=== PATIENT | female | born 1955 | race African-American/Black ===

== ENCOUNTER 2017-10-09 15:33 | Inpatient (IN) | payer MEDICAID ==
[2017-10-09] VITALS (9 sets, daily range): BP systolic 167–221; BP diastolic 95–118
[~2017-10-09] VITALS: Ht 198.1 cm; Wt 119.5 kg
[~2017-10-09 15:33] MED LIST: AMLO10TA4 PO; AMLO10TA80 PO; ATENOLOL; BENAZEPRIL; CLON0.1T PO; HCTZ; HYDR100T26 PO; LISI-653 PO; LOSA100T3 PO; METO50TA95 PO
[2017-10-09] MEDS ORDERED: HYDRALAZINE 20MG/ML VIAL IV ONE ×2 (16:15→17:30)
[2017-10-09 16:38] LABS: CHLORIDE 107 mEq/L (98-107)
[2017-10-09 16:40] LABS: HEMATOCRIT. 30.3 % (36.0-48.0); MEAN CORPUSCULAR HEMOGLOBIN 29.1 pg (28.0-32.0); MEAN CORPUSCULAR VOLUME 88.1 fL (81.0-99.0); MEAN PLATELET VOLUME 8.1 fl (7.4-10.4); MONOCYTES % 7.7 % (2.0-8.0); NEUTROPHILS % 64.3 % (40.0-76.0); PLATELET 255 x1000/uL (130-400); RED BLOOD CELL COUNT 3.44 mill/uL (4.2-5.4); RED CELL DISTRIBUTION WIDTH 15.4 % (11.6-14.6)
[2017-10-09 17:26] LABS: INR 1.1; PARTIAL THROMBOPLASTIN TIME 28.9 sec (23.4-31.0); PROTHROMBIN TIME 11.2 sec (9.4-11.6)
[2017-10-09] MEDS ORDERED: ASPIRIN 325MG EC TABLET PO ONE (18:15)
[2017-10-09] MEDS ORDERED: NITROGLYCERIN 50MG PREMIX 250 ML IV ONE (18:15)
[2017-10-09] MEDS ORDERED: HYDRALAZINE 20MG/ML VIAL IV SCH (22:00)
[2017-10-09] MEDS ORDERED: MORPHINE SULFATE 4 MG/ML CPJ (NOT FOR IM USE) IV PRN (22:00)
[2017-10-09] MEDS ORDERED: ONDANSETRON HCL 4MG/2ML VIAL IV PRN (22:00)
[2017-10-09] MEDS ORDERED: NITROPRUSSIDE 100 MG in DEXT 5% WATER 250 ML IV PRN (22:00)
[2017-10-09] MEDS ORDERED: NICARDIPINE 50 MG in SODIUM CHLORIDE 0.9% 230 ML IV PRN (22:30)
[2017-10-09] MEDS ORDERED: NICARDIPINE 40MG/200ML PREMIX 200 ML IV PRN (22:45)
[2017-10-09] MEDS: CLONIDINE 0.2MG TABLET PO SCH (22:56)
[2017-10-09] MEDS: HYDRALAZINE HCL 100MG TABLET PO SCH (22:57)
[2017-10-10] VITALS (42 sets, daily range): BP systolic 113–153; BP diastolic 60–89
[2017-10-10] MEDS: HYDRALAZINE HCL 100MG TABLET PO SCH ×3 (05:47→21:17)
[2017-10-10] MEDS: CLONIDINE 0.2MG TABLET PO SCH ×3 (05:47→21:17)
[2017-10-10] MEDS: ALLOPURINOL 100 MG TABLET PO SCH (08:33)
[2017-10-10] MEDS: AMLODIPINE 10MG TABLET PO SCH (08:34)
[2017-10-10 10:59] LABS: CREATINE KINASE 61 IU/L (26-192)
[2017-10-10] MEDS ORDERED: ACETAMINOPHEN 650MG/20.3ML UDC PO PRN (13:45)
[2017-10-10] MEDS ORDERED: ACETAMINOPHEN 325MG TABLET PO PRN (14:45)
[2017-10-10 15:36] LABS: CLARITY URINE CLOUDY (CLEAR); COLOR URINE YELLOW (YELLOW); KETONES URINE NEGATIVE (NEGATIVE); LEUKOCYTE ESTERASE URINE TRACE (NEGATIVE); NITRITE URINE NEGATIVE (NEGATIVE); OCCULT BLOOD URINE NEGATIVE (NEGATIVE); PROTEIN URINE 2+ (NEGATIVE); SPECIFIC GRAVITY URINE 1.013 (1.005-1.030); UROBILINOGEN URINE 0.2 E.U./dL (0.2-1.0)
[2017-10-11] VITALS: BP 143/74
[2017-10-11 04:00] VITALS: BP 115/60
[2017-10-11] MEDS: HYDRALAZINE HCL 100MG TABLET PO SCH ×3 (06:48→22:04)
[2017-10-11] MEDS: CLONIDINE 0.2MG TABLET PO SCH ×3 (06:48→22:05)
[2017-10-11 06:56] LABS: BASOPHILS % 0.4 % (0.0-2.0); EOSINOPHILS % 2.4 % (0.0-5.0); HEMATOCRIT. 27.4 % (36.0-48.0); HEMOGLOBIN. 9.3 g/dL (12.0-16.0); LYMPHOCYTES % 16.7 % (20.0-50.0); MEAN CORPUSCULAR HEMOGLOBIN 29.8 pg (28.0-32.0); MEAN CORPUSCULAR VOLUME 87.9 fL (81.0-99.0); MEAN PLATELET VOLUME 8.5 fl (7.4-10.4); MONOCYTES % 10.3 % (2.0-8.0); NEUTROPHILS % 70.2 % (40.0-76.0); PLATELET 228 x1000/uL (130-400); RED BLOOD CELL COUNT 3.11 mill/uL (4.2-5.4); RED CELL DISTRIBUTION WIDTH 15.7 % (11.6-14.6)
[2017-10-11 08:00] VITALS: BP 128/65
[2017-10-11] MEDS: ALLOPURINOL 100 MG TABLET PO SCH (08:43)
[2017-10-11] MEDS: AMLODIPINE 10MG TABLET PO SCH (08:43)
[2017-10-11 09:08] LABS: ANTI-NUCLEAR ANTIBODIES DIRECT Negative (Negative)
[2017-10-11 12:00] VITALS: BP 130/70
[2017-10-11 16:00] VITALS: BP 140/70
[2017-10-11 20:00] VITALS: BP 148/75
[2017-10-12] VITALS: BP 111/61
[2017-10-12 04:00] VITALS: BP 144/66
[2017-10-12] MEDS: CLONIDINE 0.2MG TABLET PO SCH (05:08)
[2017-10-12 06:44] LABS: BASOPHILS % 0.7 % (0.0-2.0); EOSINOPHILS % 2.2 % (0.0-5.0); HEMATOCRIT. 27.2 % (36.0-48.0); HEMOGLOBIN. 9.1 g/dL (12.0-16.0); LYMPHOCYTES % 19.4 % (20.0-50.0); MEAN CORPUSCULAR HEMOGLOBIN 29.5 pg (28.0-32.0); MEAN CORPUSCULAR VOLUME 87.9 fL (81.0-99.0); MEAN PLATELET VOLUME 8.8 fl (7.4-10.4); MONOCYTES % 11.5 % (2.0-8.0); NEUTROPHILS % 66.2 % (40.0-76.0); PLATELET 226 x1000/uL (130-400); RED BLOOD CELL COUNT 3.09 mill/uL (4.2-5.4); RED CELL DISTRIBUTION WIDTH 15.6 % (11.6-14.6)
[2017-10-12] MEDS: HYDRALAZINE HCL 100MG TABLET PO SCH (07:09)
[2017-10-12 08:00] VITALS: BP 130/60
[2017-10-12] MEDS: AMLODIPINE 10MG TABLET PO SCH (08:54)
[2017-10-12] MEDS: ALLOPURINOL 100 MG TABLET PO SCH (08:54)
[2017-10-12 11:24] VITALS: BP 130/68
[2017-10-14 05:25] LABS: COMPLEMENT C3 130 mg/dL (82-167)
== END 2017-10-12 13:45 | disposition home or self-care (01) | DRG 199 ==
LOC: ER 16:01 → MICUSO 18:13 → ENRESERV 18:35 → 5WST 10-10 17:15
PROVIDERS: ADMIT Hospitalist; ATTEND Hospitalist
DX: I16.1 Hypertensive emergency (principal); N17.9 Acute kidney failure, unspecified; E46 Unspecified protein-calorie malnutrition; D63.1 Anemia in chronic kidney disease; F17.200 Nicotine dependence, unspecified, uncomplicated; I12.9 Hypertensive chronic kidney disease with stage 1 through stage 4 chronic kidney disease, or unspecified chronic kidney disease; N18.9 Chronic kidney disease, unspecified; Z90.710 Acquired absence of both cervix and uterus; Z91.14 Patient's other noncompliance with medication regimen; Z79.899 Other long term (current) drug therapy; Z68.30 Body mass index [BMI] 30.0-30.9, adult
CPT/HCPCS: 36415; 71045; 76770; 80048; 80053; 81003; 82550; 84484; 85025; 85610; 85730; 86038; 86160; 93005; 96365; 96375; 96376; 99291; J0360; J2270; J2405; J3490; J7040

== ENCOUNTER 2018-06-14 12:03 | Inpatient (IN) | payer MEDICAID ==
[~2018-06-14] VITALS: Ht 167.6 cm; Wt 105.7 kg
[~2018-06-14 12:03] MED LIST changes: -AMLO10TA4 PO; -AMLO10TA80 PO; -CLON0.1T PO; -HYDR100T26 PO
[2018-06-14] MEDS ORDERED: HYDROCODONE/ACETAMINOPHEN 5/325MG TABLET PO STA (15:07)
[2018-06-14 15:37] LABS: CLARITY URINE CLEAR (CLEAR); COLOR URINE YELLOW (YELLOW); KETONES URINE NEGATIVE (NEGATIVE); LEUKOCYTE ESTERASE URINE NEGATIVE (NEGATIVE); NITRITE URINE NEGATIVE (NEGATIVE); OCCULT BLOOD URINE NEGATIVE (NEGATIVE); PROTEIN URINE 3+ (NEGATIVE); SPECIFIC GRAVITY URINE 1.012 (1.005-1.030); UROBILINOGEN URINE 0.2 E.U./dL (0.2-1.0)
[2018-06-14] MEDS ORDERED: CLONIDINE 0.2MG TABLET PO NR (18:00)
[2018-06-14] MEDS ORDERED: METOPROLOL TARTRATE 50MG TABLET PO NR (18:00)
[2018-06-14] MEDS ORDERED: AMLODIPINE 10MG TABLET PO NR (18:00)
[2018-06-14 18:04] LABS: BASOPHILS % 0.5 % (0.0-2.0); EOSINOPHILS % 2.7 % (0.0-5.0); HEMATOCRIT. 33.1 % (36.0-48.0); HEMOGLOBIN. 10.7 g/dL (12.0-16.0); LYMPHOCYTES % 21.4 % (20.0-50.0); MEAN CORPUSCULAR HEMOGLOBIN 29.3 pg (28.0-32.0); MEAN CORPUSCULAR VOLUME 90.7 fL (81.0-99.0); MEAN PLATELET VOLUME 8.4 fl (7.4-10.4); MONOCYTES % 5.8 % (2.0-8.0); NEUTROPHILS % 69.6 % (40.0-76.0); PLATELET 319 x1000/uL (130-400); RED BLOOD CELL COUNT 3.64 mill/uL (4.2-5.4); RED CELL DISTRIBUTION WIDTH 16.3 % (11.6-14.6)
[2018-06-14 18:10] LABS: CHLORIDE 109 mEq/L (98-107)
[2018-06-14 18:11] LABS: INR 1.1; PROTHROMBIN TIME 10.7 sec (9.1-11.1)
[2018-06-14] MEDS ORDERED: ASPIRIN 81MG TABLET PO ONE (18:30)
[2018-06-14] MEDS ORDERED: IPRATROPIUM/ALBUTEROL 0.5-3(2.5)MG/3ML NEB INH PRN (19:15)
[2018-06-14] MEDS ORDERED: DOCUSATE SODIUM 100MG CAPSULE PO PRN (19:15)
[2018-06-14] MEDS ORDERED: ONDANSETRON HCL 4MG/2ML INJ IV PRN (19:15)
[2018-06-14] MEDS ORDERED: LORAZEPAM 0.5MG TABLET PO PRN (19:15)
[2018-06-14] MEDS ORDERED: LABETALOL 5MG/ML SYR 20 MG/4 ML SYRINGE IV PRN (19:15)
[2018-06-14] MEDS ORDERED: LABETALOL 5MG/ML SYR 20 MG/4 ML SYRINGE IV ONE (19:45)
[2018-06-14 20:12] LABS: CREATINE KINASE MB FRACTION 1.3 ng/mL (0.5-3.6)
[2018-06-14 20:19] LABS: *AMPHETAMINES SCREEN URINE NEGATIVE (NEGATIVE); *BARBITURATES SCREEN URINE NEGATIVE (NEGATIVE); *BENZODIAZEPINES SCREEN URINE NEGATIVE (NEGATIVE); *COCAINE SCREEN URINE NEGATIVE (NEGATIVE); METHADONE URINE SCREEN NEGATIVE (NEGATIVE); OPIATES URINE SCREEN NEGATIVE (NEGATIVE)
[2018-06-14 20:20] LABS: CANNABINOID URINE SCREEN NEGATIVE (NEGATIVE); PHENCYCLIDINE URINE SCREEN NEGATIVE (NEGATIVE)
[2018-06-14] MEDS: HYDROCODONE/ACETAMINOPHEN 5/325MG TABLET PO PRN (23:44)
[2018-06-15] MEDS ORDERED: LABETALOL 5MG/ML SYR 20 MG/4 ML SYRINGE IV PRN (05:15)
[2018-06-15 06:12] LABS: BASOPHILS % 0.7 % (0.0-2.0); EOSINOPHILS % 4.1 % (0.0-5.0); HEMATOCRIT. 31.1 % (36.0-48.0); HEMOGLOBIN. 10.2 g/dL (12.0-16.0); LYMPHOCYTES % 27.1 % (20.0-50.0); MEAN CORPUSCULAR HEMOGLOBIN 29.6 pg (28.0-32.0); MEAN CORPUSCULAR VOLUME 90.2 fL (81.0-99.0); MEAN PLATELET VOLUME 8.3 fl (7.4-10.4); MONOCYTES % 7.5 % (2.0-8.0); NEUTROPHILS % 60.6 % (40.0-76.0); PLATELET 303 x1000/uL (130-400); RED BLOOD CELL COUNT 3.45 mill/uL (4.2-5.4)
[2018-06-15] MEDS ORDERED: NIFEDIPINE 10MG CAPSULE PO SCH ×2 (09:00→12:00)
[2018-06-15] MEDS: CLONIDINE 0.1MG TABLET PO PRN ×2 (10:10→15:36)
[2018-06-15] MEDS: HYDROCODONE/ACETAMINOPHEN 5/325MG TABLET PO PRN ×2 (11:33→15:37)
[2018-06-15 12:34] LABS: FOLIC ACID (FOLATE) SERUM 13.1 ng/mL (>5.38)
[2018-06-15 14:18] LABS: TOTAL IRON BINDING CAPACITY 200 ug/dL (250-450)
[2018-06-15] MEDS ORDERED: CEFTRIAXONE 1 G PREMIX 50 ML IV SCH (19:15)
[2018-06-15 20:00] VITALS: BP_SYST 115; BP_SYST 155; BP_DIAS 88; BP_DIAS 93
[2018-06-15] MEDS: CEFTRIAXONE 1,000 MG in DEXTROSE 5% WATER 50 ML IV SCH (22:33)
[2018-06-15] MEDS: DILTIAZEM HCL 30MG TABLET PO SCH (22:34)
[2018-06-15] MEDS: NICOTINE 7MG PATCH TD SCH (22:34)
[2018-06-16] VITALS: BP 166/89
[2018-06-16 04:00] VITALS: BP 161/89
[2018-06-16] MEDS: DILTIAZEM HCL 30MG TABLET PO SCH ×3 (04:47→15:02)
[2018-06-16] MEDS: CLONIDINE 0.1MG TABLET PO PRN ×2 (04:47→09:40)
[2018-06-16 07:11] LABS: BASOPHILS % 0.5 % (0.0-2.0); EOSINOPHILS % 4.7 % (0.0-5.0); HEMATOCRIT. 25.8 % (36.0-48.0); HEMOGLOBIN. 8.4 g/dL (12.0-16.0); LYMPHOCYTES % 24.1 % (20.0-50.0); MEAN CORPUSCULAR HEMOGLOBIN 29.3 pg (28.0-32.0); MEAN PLATELET VOLUME 8.3 fl (7.4-10.4); MONOCYTES % 9.4 % (2.0-8.0); NEUTROPHILS % 61.3 % (40.0-76.0); PLATELET 246 x1000/uL (130-400); RED BLOOD CELL COUNT 2.86 mill/uL (4.2-5.4)
[2018-06-16] MEDS: NICOTINE 7MG PATCH TD SCH (09:39)
[2018-06-16] MEDS: HYDROCODONE/ACETAMINOPHEN 5/325MG TABLET PO PRN ×2 (09:41→18:33)
[2018-06-16 12:00] VITALS: BP 171/93
[2018-06-16 12:31] LABS: CLARITY URINE CLOUDY (CLEAR); COLOR URINE YELLOW (YELLOW); KETONES URINE NEGATIVE (NEGATIVE); LEUKOCYTE ESTERASE URINE 2+ (NEGATIVE); NITRITE URINE NEGATIVE (NEGATIVE); OCCULT BLOOD URINE TRACE (NEGATIVE); PH URINE 6.5 (4.5-8.0); PROTEIN URINE 2+ (NEGATIVE); SPECIFIC GRAVITY URINE 1.013 (1.005-1.030); UROBILINOGEN URINE 0.2 E.U./dL (0.2-1.0)
[2018-06-16 13:29] LABS: HEMATOCRIT 26.8 % (36.0-48.0); HEMOGLOBIN 8.6 g/dL (12.0-16.0)
[2018-06-16] MEDS: CLONIDINE 0.1MG TABLET PO SCH ×2 (15:02→23:09)
[2018-06-16 16:00] VITALS: BP 150/90
[2018-06-16] MEDS: FUROSEMIDE 40MG TABLET PO SCH (18:24)
[2018-06-16 20:00] VITALS: BP 151/86
[2018-06-16] MEDS: CEFTRIAXONE 1,000 MG in DEXTROSE 5% WATER 50 ML IV SCH (20:39)
[2018-06-16] MEDS: DILTIAZEM HCL 90MG TABLET PO SCH (20:39)
[2018-06-17] VITALS: BP 142/81
[2018-06-17] MEDS: DILTIAZEM HCL 90MG TABLET PO SCH ×2 (03:57→08:43)
[2018-06-17 04:00] VITALS: BP 143/86
[2018-06-17] MEDS: CLONIDINE 0.1MG TABLET PO SCH ×3 (06:39→21:10)
[2018-06-17 08:00] VITALS: BP 154/85
[2018-06-17 08:21] LABS: BASOPHILS % 0.7 % (0.0-2.0); EOSINOPHILS % 4.1 % (0.0-5.0); HEMATOCRIT. 27.3 % (36.0-48.0); LYMPHOCYTES % 25.5 % (20.0-50.0); MEAN CORPUSCULAR HEMOGLOBIN 29.7 pg (28.0-32.0); MEAN CORPUSCULAR VOLUME 90.2 fL (81.0-99.0); MEAN PLATELET VOLUME 8.4 fl (7.4-10.4); MONOCYTES % 9.5 % (2.0-8.0); NEUTROPHILS % 60.2 % (40.0-76.0); PLATELET 262 x1000/uL (130-400); RED BLOOD CELL COUNT 3.02 mill/uL (4.2-5.4); RED CELL DISTRIBUTION WIDTH 15.8 % (11.6-14.6)
[2018-06-17] MEDS: FUROSEMIDE 40MG TABLET PO SCH (08:43)
[2018-06-17] MEDS: NICOTINE 7MG PATCH TD SCH (08:44)
[2018-06-17] MEDS ORDERED: DILTIAZEM HCL 180MG CAPSULE CD 24HR PO SCH (09:30)
[2018-06-17] MEDS: MAGNESIUM CHLORIDE 64MG TABLET SR PO SCH (15:56)
[2018-06-17] MEDS: DILTIAZEM HCL 120MG CAPSULE CD 24HR PO SCH ×2 (15:56→21:10)
[2018-06-17] MEDS: HYDROCODONE/ACETAMINOPHEN 5/325MG TABLET PO PRN (19:55)
[2018-06-17 20:33] VITALS: BP 174/86
[2018-06-17] MEDS: CEFTRIAXONE 1,000 MG in DEXTROSE 5% WATER 50 ML IV SCH (21:09)
[2018-06-18] VITALS (7 sets, daily range): BP systolic 147–178; BP diastolic 72–88
[2018-06-18] MEDS: HYDROCODONE/ACETAMINOPHEN 5/325MG TABLET PO PRN (05:17)
[2018-06-18] MEDS: CLONIDINE 0.1MG TABLET PO SCH (05:17)
[2018-06-18 06:57] LABS: MEAN CORPUSCULAR HEMOGLOBIN 29.6 pg (28.0-32.0); MEAN CORPUSCULAR VOLUME 88.6 fL (81.0-99.0); MEAN PLATELET VOLUME 8.7 fl (7.4-10.4); PLATELET 282 x1000/uL (130-400); RED BLOOD CELL COUNT 3.05 mill/uL (4.2-5.4); RED CELL DISTRIBUTION WIDTH 15.5 % (11.6-14.6)
[2018-06-18] MEDS: NICOTINE 7MG PATCH TD SCH (09:00)
[2018-06-18] MEDS: FUROSEMIDE 40MG TABLET PO SCH (09:02)
[2018-06-18] MEDS: DILTIAZEM HCL 120MG CAPSULE CD 24HR PO SCH (09:03)
[2018-06-18] MEDS: MAGNESIUM CHLORIDE 64MG TABLET SR PO SCH (09:04)
[2018-06-18] MEDS: GUAIFENESIN-DM 200MG-20MG/10ML UDC PO PRN ×2 (12:24→17:41)
[2018-06-18 13:56] LABS: PLATELET ESTIMATE NORMAL
[2018-06-18] MEDS ORDERED: CLONIDINE 0.2MG TABLET PO SCH (14:00)
[2018-06-18] MEDS: CLONIDINE 0.1MG TABLET PO PRN (16:45)
[2018-06-18] MEDS ORDERED: HYDRALAZINE 20MG/ML VIAL IV NR (18:30)
[2018-06-18] MEDS ORDERED: GUAIFENESIN 600MG ER TABLET PO SCH (21:00)
== END 2018-06-18 20:30 | disposition home or self-care (01) | DRG 199 ==
LOC: ER 13:59 → EDBEDREQSVC 06-15 12:31 → 8WST 06-15 14:00 → ENRESERV 06-15 15:36
PROVIDERS: ADMIT Internal Medicine; ATTEND Internal Medicine
DX: I16.1 Hypertensive emergency (principal); N17.9 Acute kidney failure, unspecified; I45.81 Long QT syndrome; N12 Tubulo-interstitial nephritis, not specified as acute or chronic; N18.5 Chronic kidney disease, stage 5; Z85.41 Personal history of malignant neoplasm of cervix uteri; Z90.711 Acquired absence of uterus with remaining cervical stump; D63.8 Anemia in other chronic diseases classified elsewhere; F17.200 Nicotine dependence, unspecified, uncomplicated; J44.9 Chronic obstructive pulmonary disease, unspecified; R10.9 Unspecified abdominal pain; F12.90 Cannabis use, unspecified, uncomplicated; Z90.710 Acquired absence of both cervix and uterus; E66.9 Obesity, unspecified; I13.0 Hypertensive heart and chronic kidney disease with heart failure and stage 1 through stage 4 chronic kidney disease, or unspecified chronic kidney disease; Z68.37 Body mass index [BMI] 37.0-37.9, adult
CPT/HCPCS: 36415; 71045; 74176; 80048; 80305; 82550; 82553; 82575; 82607; 82728; 82746; 83540; 83550; 83735; 84145; 84484; 85014; 85018; 93005; 93306; 93970; 99285; C1893; G0378; J0360; J0696; J3490; J7050; J7060

== ENCOUNTER 2019-11-14 03:13 | Emergency (ER) | payer MEDICAID ==
[~2019-11-14] VITALS: Ht 167.6 cm; Wt 113.7 kg
[2019-11-14] MEDS ORDERED: MORPHINE SULFATE 10 MG/ML CPJ IM ONE (04:30)
[2019-11-14] MEDS ORDERED: AMLODIPINE 10MG TABLET PO ONE (05:30)
[2019-11-14 08:23] VITALS: BP 187/97
== END 2019-11-14 08:35 | disposition home or self-care (01) ==
LOC: ER 03:18
DX: S80.02XA Contusion of left knee, initial encounter (principal); S80.01XA Contusion of right knee, initial encounter; W01.0XXA Fall on same level from slipping, tripping and stumbling without subsequent striking against object, initial encounter; Y93.89 Activity, other specified; Y92.89 Other specified places as the place of occurrence of the external cause; Y99.8 Other external cause status; I10 Essential (primary) hypertension; Z90.710 Acquired absence of both cervix and uterus; F12.10 Cannabis abuse, uncomplicated; I16.0 Hypertensive urgency; Z79.899 Other long term (current) drug therapy
CPT/HCPCS: 72100; 73562; 96372; 99284; J2270

== ENCOUNTER 2023-06-07 17:35 | Inpatient (IN) | payer MEDICARE, MEDICAID ==
[~2023-06-07] VITALS: Ht 167.6 cm; Wt 94.4 kg
[~2023-06-07 17:35] MED LIST changes: -BENAZEPRIL; +CLON-493 MT; -HCTZ; -LISI-653 PO; -LOSA100T3 PO; +NIFE-32 PO
[2023-06-07] MEDS ORDERED: MORPHINE SULFATE 4 MG/ML CPJ (NOT FOR IM USE) IV STA (18:07)
[2023-06-07] MEDS ORDERED: ONDANSETRON HCL 4MG/2ML INJ IV STA (18:07)
[2023-06-07] MEDS ORDERED: PIPERACILLIN/TAZO 3.375G/50ML 50 ML IV ONE (18:15)
[2023-06-07] MEDS ORDERED: VANCOMYCIN 1G PREMIX 200 ML IV ONE (18:15)
[2023-06-07 20:37] LABS: BASOPHILS % 1.2 % (0.0-2.0); DIFFERENTIAL COMMENT 0; EOSINOPHILS % 2.7 % (0.0-5.0); LYMPHOCYTES % 18.2 % (20.0-50.0); MEAN CORPUSCULAR HEMOGLOBIN 27.4 pg (28.0-32.0); MEAN CORPUSCULAR HGB CONC 31.8 g/dL (31.0-37.0); MEAN CORPUSCULAR VOLUME 86.2 fL (81.0-99.0); MONOCYTES % 9.7 % (2.0-8.0); NEUTROPHILS % 68.2 % (40.0-76.0); PLATELET 434 x1000/uL (130-400); RED BLOOD CELL COUNT 2.34 mill/uL (4.2-5.4); RED CELL DISTRIBUTION WIDTH 21.3 % (11.6-14.6); WHITE BLOOD COUNT 9.2 x1000/uL (4.5-11.0)
[2023-06-07 20:46] LABS: HEMATOCRIT. 20.2 % (36.0-48.0); HEMOGLOBIN. 6.4 g/dL (12.0-16.0)
[2023-06-07 20:49] LABS: ALANINE AMINOTRANSFERASE < 7 IU/L (10-49); ALBUMIN 3.4 g/dL (3.2-4.8); ASPARTATE AMINOTRANSFERASE 13 IU/L (<34); BILIRUBIN TOTAL < 0.2 mg/dL (0.1-1.0); CALCIUM 8.8 mg/dL (8.7-10.4); CARBON DIOXIDE 28 mEq/L (21-32); CHLORIDE 100 mEq/L (98-107); GLUCOSE 92 mg/dL (70-105); POTASSIUM 4.6 mEq/L (3.5-5.1); PROTEIN TOTAL 6.9 g/dL (6.0-8.3); SODIUM 135 mEq/L (136-145); UREA NITROGEN BLOOD 65 mg/dL (9-23)
[2023-06-07 20:50] LABS: CREATININE 5.9 mg/dL (0.6-1.0)
[2023-06-07 20:51] LABS: PARTIAL THROMBOPLASTIN TIME 27.3 sec (23.4-31.0); PROTHROMBIN TIME 11.2 sec (9.6-11.0); TROPONIN I HIGH SENSITIVITY 35 ng/L (3.0-34)
[2023-06-07] MEDS: PIPERACILLIN/TAZO 3.375G/50ML 50 ML IV NR (21:39)
[2023-06-07] MEDS: MORPHINE SULFATE 4 MG/ML CPJ (NOT FOR IM USE) IV NR (21:39)
[2023-06-07] MEDS: ONDANSETRON HCL 4MG/2ML INJ IV NR (21:39)
[2023-06-07] MEDS: ONDANSETRON HCL 4MG/2ML INJ IV STA (22:03)
[2023-06-07] MEDS: MORPHINE SULFATE 4 MG/ML CPJ (NOT FOR IM USE) IV STA (22:03)
[2023-06-07] MEDS: VANCOMYCIN 1G PREMIX 200 ML IV NR (22:03)
[2023-06-08 01:53] VITALS: BP 153/90; PULSE 88; RESP 20; TEMP 97.1
[2023-06-08] MEDS: CLONIDINE 0.1MG TABLET PO SCH (06:39)
[2023-06-08 08:00] VITALS: BP 167/88; PULSE 88; RESP 15; TEMP 97.9
[2023-06-08] MEDS ORDERED: NALOXONE HCL 0.4MG/ML VIAL IV PRN (08:45)
[2023-06-08] MEDS: ASPIRIN 81MG TABLET PO SCH (08:50)
[2023-06-08] MEDS: PIPERACILLIN/TAZO 3.375G/50ML 50 ML IV SCH (08:50)
[2023-06-08] MEDS: METOPROLOL TARTRATE 50MG TABLET PO SCH (08:50)
[2023-06-08] MEDS: HYDROCODONE/ACETAMINOPHEN 10/325MG TABLET PO PRN (08:51)
[2023-06-08] MEDS: GABAPENTIN 300MG CAPSULE PO SCH (08:52)
[2023-06-08] MEDS ORDERED: NIFEDIPINE XL 60MG TAB PO SCH (09:00)
[2023-06-08] MEDS: ONDANSETRON HCL 4MG/2ML INJ IV PRN (10:27)
[2023-06-08] MEDS: VANCOMYCIN 500MG PREMIX 100 ML IV SCH (11:08)
[2023-06-08 12:00] VITALS: BP 172/73; PULSE 59; RESP 15; TEMP 97.6
[2023-06-08 12:45] LABS: HEMATOCRIT. 23.2 % (36.0-48.0); HEMOGLOBIN. 7.5 g/dL (12.0-16.0); MEAN CORPUSCULAR HEMOGLOBIN 28.4 pg (28.0-32.0); MEAN CORPUSCULAR HGB CONC 32.2 g/dL (31.0-37.0); MEAN CORPUSCULAR VOLUME 88.3 fL (81.0-99.0); MEAN PLATELET VOLUME 7.4 fl (7.4-10.4); PLATELET 392 x1000/uL (130-400); RED BLOOD CELL COUNT 2.63 mill/uL (4.2-5.4); RED CELL DISTRIBUTION WIDTH 19.8 % (11.6-14.6); WHITE BLOOD COUNT 9.2 x1000/uL (4.5-11.0)
[2023-06-08 12:57] LABS: DIFFERENTIAL COMMENT 1
[2023-06-08 13:14] LABS: CALCIUM 9.2 mg/dL (8.7-10.4); PHOSPHORUS 7.4 mg/dL (2.5-4.9); POTASSIUM 5.8 mEq/L (3.5-5.1)
[2023-06-08 13:17] LABS: CREATININE 6.4 mg/dL (0.6-1.0)
[2023-06-08 13:40] LABS: PLATELET ESTIMATE NORMAL
[2023-06-08 13:41] LABS: ANISOCYTOSIS 2+
[2023-06-08] MEDS: DEXTROSE 50% WATER 50ML SYRINGE IV NR (14:31)
[2023-06-08] MEDS: CALCIUM CHLORIDE 1,000 MG in DEXT 5% WATER 90 ML IV NR (14:32)
[2023-06-08] MEDS: INSULIN REGULAR (HUMULIN R) 300UNITS/3ML VIAL IV NR (14:54)
[2023-06-08 16:00] VITALS: BP 153/74; PULSE 61; RESP 17; TEMP 97.5
[2023-06-08 20:00] VITALS: BP 115/75; PULSE 81; RESP 17; TEMP 98.1
[2023-06-09] VITALS (15 sets, daily range): BP systolic 102–133; BP diastolic 50–100; PULSE 55–90; RESP 16–20; TEMP 97.2–99
[2023-06-09 06:18] LABS: BASOPHILS % 0.6 % (0.0-2.0); EOSINOPHILS % 3.8 % (0.0-5.0); HEMATOCRIT. 22.2 % (36.0-48.0); HEMOGLOBIN. 7.3 g/dL (12.0-16.0); LYMPHOCYTES % 17.6 % (20.0-50.0); MEAN CORPUSCULAR HEMOGLOBIN 28.3 pg (28.0-32.0); MEAN CORPUSCULAR HGB CONC 32.8 g/dL (31.0-37.0); MEAN CORPUSCULAR VOLUME 86.2 fL (81.0-99.0); MEAN PLATELET VOLUME 7.4 fl (7.4-10.4); MONOCYTES % 9.9 % (2.0-8.0); NEUTROPHILS % 68.1 % (40.0-76.0); PLATELET 425 x1000/uL (130-400); RED BLOOD CELL COUNT 2.57 mill/uL (4.2-5.4); WHITE BLOOD COUNT 9.5 x1000/uL (4.5-11.0)
[2023-06-09 06:31] LABS: CALCIUM 9.2 mg/dL (8.7-10.4); POTASSIUM 5.8 mEq/L (3.5-5.1)
[2023-06-09 06:33] LABS: CREATININE 6.7 mg/dL (0.6-1.0)
[2023-06-09 11:42] LABS: HEPATITIS A AB IGM NEGATIVE (Negative); HEPATITIS B CORE AB IGM NEGATIVE (Negative); HEPATITIS B SURFACE ANTIGEN NEGATIVE (Negative); HEPATITIS C AB NON REACTIVE (Neg) (Negative)
[2023-06-09] MEDS ORDERED: EPOETIN ALFA 4000UNITS/ML VIAL SUBCUT NR (21:00)
[2023-06-09] MEDS: ZOLPIDEM TARTRATE 5MG TABLET PO PRN (21:44)
[2023-06-10] VITALS (18 sets, daily range): BP systolic 101–144; BP diastolic 46–77; PULSE 62–83; RESP 16–20; TEMP 94.5–100.9
[2023-06-10] MEDS: EPOETIN ALFA 4000UNITS/ML VIAL SUBCUT NR (05:33)
[2023-06-10 08:08] LABS: CALCIUM 9.3 mg/dL (8.7-10.4); HEMATOCRIT 22.2 % (36.0-48.0); HEMOGLOBIN 7.1 g/dL (12.0-16.0); MEAN CORPUSCULAR VOLUME 87.5 fL (81.0-99.0); PLATELET 408 x1000/uL (130-400); POTASSIUM 5.3 mEq/L (3.5-5.1); RED BLOOD CELL COUNT 2.54 mill/uL (4.2-5.4); RED CELL DISTRIBUTION WIDTH 20.1 % (11.6-14.6); WHITE BLOOD COUNT 10.3 x1000/uL (4.5-11.0)
[2023-06-10 08:12] LABS: CREATININE 6.2 mg/dL (0.6-1.0)
[2023-06-10] MEDS: SODIUM POLYSTYRENE SULFONATE 15 G/60 ML BOT PO SCH (12:00)
[2023-06-10] MEDS ORDERED: ALBUTEROL (0.083%) 2.5MG/3ML NEB HHN SCH (12:00)
[2023-06-10] MEDS: VANCOMYCIN 500MG PREMIX 100 ML IV NR (17:43)
[2023-06-11] VITALS: BP 102/49; PULSE 77; RESP 20; TEMP 99.1
[2023-06-11 04:00] VITALS: BP 121/51; PULSE 68; RESP 18; TEMP 99.2
[2023-06-11 06:38] LABS: HEMATOCRIT 23.8 % (36.0-48.0); HEMOGLOBIN 7.7 g/dL (12.0-16.0); MEAN CORPUSCULAR HEMOGLOBIN 28.9 pg (28.0-32.0); MEAN CORPUSCULAR HGB CONC 32.6 g/dL (31.0-37.0); MEAN CORPUSCULAR VOLUME 88.7 fL (81.0-99.0); PLATELET 377 x1000/uL (130-400); RED BLOOD CELL COUNT 2.68 mill/uL (4.2-5.4); RED CELL DISTRIBUTION WIDTH 19.9 % (11.6-14.6); WHITE BLOOD COUNT 9.3 x1000/uL (4.5-11.0)
[2023-06-11 07:07] LABS: CALCIUM 9.4 mg/dL (8.7-10.4); POTASSIUM 4.9 mEq/L (3.5-5.1)
[2023-06-11 07:08] LABS: CREATININE 5.3 mg/dL (0.6-1.0)
[2023-06-11 08:00] VITALS: BP 132/55; PULSE 63; RESP 20; TEMP 97.9
[2023-06-11] MEDS ORDERED: MIDAZOLAM HCL 2 MG/2 ML VIAL ONE ×2 (08:56→12:05)
[2023-06-11] MEDS ORDERED: FENTANYL CITRATE/PF 50MCG/ML 2ML VIAL ONE ×3 (08:57→12:04)
[2023-06-11] MEDS ORDERED: HEPARIN 1000 UNITS/ML 10ML ONE ×2 (08:58→10:17)
[2023-06-11] MEDS ORDERED: LIDOCAINE HCL 1% 20ML VIAL (Pyxis) INJ ONE ×2 (08:58→09:50)
[2023-06-11] MEDS ORDERED: IODIXANOL 320MG/ML 100 ML BOTTLE IV ONE ×2 (08:58→09:45)
[2023-06-11 16:00] VITALS: BP 159/63; PULSE 67; RESP 20; TEMP 97.2
[2023-06-11 20:00] VITALS: BP 121/66; PULSE 77; RESP 20; TEMP 97.9
[2023-06-12] VITALS (16 sets, daily range): BP systolic 93–146; BP diastolic 5–75; PULSE 6–116; RESP 16–20; TEMP 97–98.2
[2023-06-12 06:29] LABS: BASOPHILS % 0.5 % (0.0-2.0); EOSINOPHILS % 2.9 % (0.0-5.0); HEMATOCRIT. 22.8 % (36.0-48.0); HEMOGLOBIN. 7.5 g/dL (12.0-16.0); LYMPHOCYTES % 10.9 % (20.0-50.0); MEAN CORPUSCULAR HEMOGLOBIN 28.9 pg (28.0-32.0); MEAN CORPUSCULAR HGB CONC 32.8 g/dL (31.0-37.0); MEAN PLATELET VOLUME 7.6 fl (7.4-10.4); MONOCYTES % 10.8 % (2.0-8.0); NEUTROPHILS % 74.9 % (40.0-76.0); PLATELET 355 x1000/uL (130-400); RED CELL DISTRIBUTION WIDTH 20.2 % (11.6-14.6); WHITE BLOOD COUNT 10.1 x1000/uL (4.5-11.0)
[2023-06-12 06:47] LABS: POTASSIUM 5.3 mEq/L (3.5-5.1)
[2023-06-12 06:52] LABS: CREATININE 6.2 mg/dL (0.6-1.0)
[2023-06-12] MEDS ORDERED: ALBUTEROL (0.083%) 2.5MG/3ML NEB HHN NR (12:00)
[2023-06-12] MEDS: METOPROLOL TARTRATE 50MG TABLET PO NR (13:15)
[2023-06-12] MEDS: SODIUM POLYSTYRENE SULFONATE 15 G/60 ML BOT PO NR (13:16)
[2023-06-12] MEDS: VANCOMYCIN 500MG PREMIX 100 ML IV NR (18:19)
[2023-06-12] MEDS ORDERED: HYDR-4001 MT (18:56)
[2023-06-12] MEDS: METOPROLOL TARTRATE 50MG TABLET PO SCH (22:05)
[2023-06-13 04:00] VITALS: BP 120/56; PULSE 81; RESP 19; TEMP 97.7
[2023-06-13] MEDS: METOPROLOL TARTRATE 50MG TABLET PO NR (05:58)
[2023-06-13 08:00] VITALS: BP 140/60; PULSE 71; RESP 18; TEMP 98.1
[2023-06-13] MEDS: NITROGLYCERIN SPRAY/4.9GM CAN TL NR (08:50)
[2023-06-13] MEDS ORDERED: IOHEXOL-350 100 ML BOTTLE ONE (09:14)
[2023-06-13 09:54] LABS: CALCIUM 9.1 mg/dL (8.7-10.4); CARBON DIOXIDE 23 mEq/L (21-32); CHLORIDE 102 mEq/L (98-107); GLUCOSE 67 mg/dL (70-105); PHOSPHORUS 6.8 mg/dL (2.5-4.9); POTASSIUM 4.4 mEq/L (3.5-5.1); SODIUM 137 mEq/L (136-145); UREA NITROGEN BLOOD 50 mg/dL (9-23)
[2023-06-13 09:56] LABS: CREATININE 5.5 mg/dL (0.6-1.0)
[2023-06-13] MEDS ORDERED: DIPHENHYDRAMINE 50MG/ML VIAL ONE (10:53)
[2023-06-13] MEDS ORDERED: HEPARIN 1000 UNITS/ML 10ML ONE (10:53)
[2023-06-13] MEDS ORDERED: LIDOCAINE HCL/PF 1% 10 MG/ML 5ML VIAL ONE (10:53)
[2023-06-13] MEDS ORDERED: VERAPAMIL HCL 2.5 MG/1 ML 2ML VIAL IV ONE (10:53)
[2023-06-13] MEDS ORDERED: IODIXANOL 320MG/ML 100 ML BOTTLE IV ONE ×2 (10:54→11:54)
[2023-06-13] MEDS ORDERED: CALCIUM ACETATE 667MG CAPSULE PO SCH (11:00)
[2023-06-13] MEDS ORDERED: FENTANYL CITRATE/PF 50MCG/ML 2ML VIAL ONE ×2 (11:17→11:40)
[2023-06-13] MEDS ORDERED: MIDAZOLAM HCL 2 MG/2 ML VIAL ONE ×2 (11:18→11:41)
[2023-06-13] MEDS ORDERED: ATROPINE SULFATE 1MG/10ML SYR ONE (11:32)
[2023-06-13 12:00] VITALS: BP 136/67; PULSE 64; RESP 18; TEMP 98
[2023-06-13] MEDS ORDERED: ATROPINE SULFATE 1MG/10ML SYR IV PRN (13:15)
[2023-06-13] MEDS ORDERED: ASPI-1406 MT (13:46)
[2023-06-13] MEDS ORDERED: LIP40 MT (13:46)
[2023-06-13 16:15] VITALS: BP 140/60; PULSE 62; RESP 18; TEMP 97
[2023-06-13] MEDS: CALCIUM ACETATE 667MG CAPSULE PO SCH (17:35)
[2023-06-13] MEDS: HYDROCODONE/ACETAMINOPHEN 10/325MG TABLET PO PRN (17:36)
[2023-06-13 20:00] VITALS: BP 129/59; PULSE 72; RESP 18; TEMP 100
[2023-06-13] MEDS: ACETAMINOPHEN 325MG TABLET PO PRN (20:30)
[2023-06-13] MEDS: EPOETIN ALFA 4000UNITS/ML VIAL SUBCUT NR (21:52)
[2023-06-14] VITALS (13 sets, daily range): BP systolic 108–140; BP diastolic 47–66; PULSE 60–84; RESP 16–20; TEMP 97.5–100.8; O2SAT 97
[2023-06-14 06:44] LABS: CARBON DIOXIDE 22 mEq/L (21-32); CHLORIDE 98 mEq/L (98-107); GLUCOSE 63 mg/dL (70-105); POTASSIUM 4.6 mEq/L (3.5-5.1); SODIUM 132 mEq/L (136-145); UREA NITROGEN BLOOD 53 mg/dL (9-23)
[2023-06-14 06:45] LABS: BASOPHILS % 0.6 % (0.0-2.0); EOSINOPHILS % 4.8 % (0.0-5.0); HEMATOCRIT. 23.1 % (36.0-48.0); HEMOGLOBIN. 7.5 g/dL (12.0-16.0); LYMPHOCYTES % 16.4 % (20.0-50.0); MEAN CORPUSCULAR HEMOGLOBIN 28.6 pg (28.0-32.0); MEAN CORPUSCULAR HGB CONC 32.5 g/dL (31.0-37.0); MEAN CORPUSCULAR VOLUME 87.9 fL (81.0-99.0); MEAN PLATELET VOLUME 7.8 fl (7.4-10.4); MONOCYTES % 12.1 % (2.0-8.0); NEUTROPHILS % 66.1 % (40.0-76.0); PLATELET 331 x1000/uL (130-400); RED BLOOD CELL COUNT 2.62 mill/uL (4.2-5.4); RED CELL DISTRIBUTION WIDTH 19.7 % (11.6-14.6); WHITE BLOOD COUNT 6.7 x1000/uL (4.5-11.0)
[2023-06-14 06:48] LABS: CREATININE 6.4 mg/dL (0.6-1.0)
[2023-06-14 06:49] LABS: PHOSPHORUS 8.7 mg/dL (2.5-4.9)
[2023-06-18] MEDS ORDERED: TIZA-204 PO (14:32)
[2023-06-18] MEDS ORDERED: ACET-2708 PO (14:32)
[2023-06-18] MEDS ORDERED: SEVE800T8 PO (14:32)
[2023-06-18] MEDS ORDERED: CHOL200059 PO (14:32)
[2023-06-18] MEDS ORDERED: LISI10TA26 PO (14:32)
[2023-06-18] MEDS ORDERED: APIX2.5T PO (14:32)
[2023-06-18] MEDS ORDERED: GABA800T97 PO (14:32)
[2023-06-18] MEDS ORDERED: FOLI0.4T6 PO (14:32)
== END 2023-06-14 12:30 | disposition home or self-care (01) | DRG 270 ==
LOC: ER 17:35 → 7WST 21:42 → EDBEDREQTM 21:47 → EDBEDREQ 21:47
PROVIDERS: ADMIT Internal Medicine; ATTEND Internal Medicine
PROC: 30233N1 Transfusion of Nonautologous Red Blood Cells into Peripheral Vein, Percutaneous Approach (ICD-10-PCS; principal; 2023-06-07)
PROC: 5A1D70Z Performance of Urinary Filtration, Intermittent, Less than 6 Hours Per Day (ICD-10-PCS; 2023-06-09)
PROC: 5A1D70Z Performance of Urinary Filtration, Intermittent, Less than 6 Hours Per Day (ICD-10-PCS; 2023-06-10)
PROC: 04CK3ZZ Extirpation of Matter from Right Femoral Artery, Percutaneous Approach (ICD-10-PCS; 2023-06-11)
PROC: 047K3ZZ Dilation of Right Femoral Artery, Percutaneous Approach (ICD-10-PCS; 2023-06-11)
PROC: 04FK3ZZ Fragmentation of Right Femoral Artery, Percutaneous Approach (ICD-10-PCS; 2023-06-11)
PROC: B41D1ZZ Fluoroscopy of Aorta and Bilateral Lower Extremity Arteries using Low Osmolar Contrast (ICD-10-PCS; 2023-06-11)
PROC: 5A1D70Z Performance of Urinary Filtration, Intermittent, Less than 6 Hours Per Day (ICD-10-PCS; 2023-06-12)
PROC: 4A023N7 Measurement of Cardiac Sampling and Pressure, Left Heart, Percutaneous Approach (ICD-10-PCS; 2023-06-13)
PROC: B211YZZ Fluoroscopy of Multiple Coronary Arteries using Other Contrast (ICD-10-PCS; 2023-06-13)
PROC: 5A1D70Z Performance of Urinary Filtration, Intermittent, Less than 6 Hours Per Day (ICD-10-PCS; 2023-06-14)
DX: I70.261 Atherosclerosis of native arteries of extremities with gangrene, right leg (principal); N18.6 End stage renal disease; I12.0 Hypertensive chronic kidney disease with stage 5 chronic kidney disease or end stage renal disease; I25.10 Atherosclerotic heart disease of native coronary artery without angina pectoris; D64.9 Anemia, unspecified; E87.5 Hyperkalemia; S90.31XA Contusion of right foot, initial encounter; Z99.2 Dependence on renal dialysis; X58.XXXA Exposure to other specified factors, initial encounter; Y93.89 Activity, other specified; Y92.89 Other specified places as the place of occurrence of the external cause; Y99.8 Other external cause status
CPT/HCPCS: 36415; 37225; 71045; 73630; 75571; 75635; 75710; 80048; 80053; 80202; 83036; 83605; 83735; 83880; 84100; 84145; 84484; 85025; 85027; 85347; 86705; 86709; 86850; 86900; 86920; 87340; 90935; 93005; 93306; 93458; 93922; 93970; 99285; C1760; C1769; C1887; C1893; C1894; J0461; J0885; J1200; J1644; J1815; J2250; J2270; J2405; J2543; J3010; J3370; J3490; J7060; P9016; Q9967; C1761

== ENCOUNTER 2025-04-11 13:34 | Emergency (ER) | payer MEDICAID, MEDICARE ==
[~2025-04-11] VITALS: Ht 167.6 cm; Wt 135.0 kg
[~2025-04-11 13:34] MED LIST changes: +ACET-2708 PO; +APIX2.5T PO; +ASPI-1160 PO; -ATENOLOL; -CLON-493 MT; +HYDR25TA78 PO; -METO50TA95 PO; -NIFE-32 PO; +NIFE-72 PO; +SEVE800T8 PO; +TIZA-204 PO
[2025-04-11 13:42] VITALS: TEMP 98; O2SAT 100
[2025-04-11 14:18] LABS: BASOPHILS % 0.4 % (0.0-2.0); EOSINOPHILS % 2.2 % (0.0-5.0); HEMATOCRIT. 40.8 % (36.0-48.0); HEMOGLOBIN. 13.5 g/dL (12.0-16.0); LYMPHOCYTES % 17.7 % (20.0-50.0); MEAN PLATELET VOLUME 7.0 fl (7.4-10.4); MONOCYTES % 7.2 % (2.0-8.0); NEUTROPHILS % 72.5 % (40.0-76.0); PLATELET 216 x1000/uL (130-400); RED BLOOD CELL COUNT 4.16 mill/uL (4.2-5.4); RED CELL DISTRIBUTION WIDTH 16.3 % (11.6-14.6)
[2025-04-11 14:31] LABS: UREA NITROGEN BLOOD 18.0 mg/dL (9-23)
[2025-04-11 14:58] LABS: CREATININE 3.3 mg/dL (0.6-1.0)
[2025-04-11 19:21] VITALS: BP 100/5; PULSE 75; RESP 15; O2SAT 96
== END 2025-04-11 19:24 | disposition home or self-care (01) ==
LOC: ER 13:34
DX: Z79.01 Long term (current) use of anticoagulants (principal); Z79.82 Long term (current) use of aspirin; Z79.899 Other long term (current) drug therapy; Z89.511 Acquired absence of right leg below knee; Z99.2 Dependence on renal dialysis
CPT/HCPCS: 36415; 80048; 85025; 99283